=== PATIENT | male | born 1945 | race Caucasian/White ===

== ENCOUNTER 2025-03-11 08:39 | Emergency (ER) | payer MEDICARE, BC ==
[~2025-03-11] VITALS: Ht 167.6 cm; Wt 81.6 kg
[2025-03-11 08:47] VITALS: TEMP 97
--- NOTE | 2025-03-11 09:05 | Physician Documentation ---
History of Present Illness General Chief Complaint: Blood in Urine Stated Complaint: URINARY COMPLICATIONS Time Seen by MD: 09:05 OK to notify your PCP?: No Source: patient, family, RN notes reviewed Mode of Arrival: POV Exam Limitations: no limitations History of Present Illness Initial Comments 79 year old male, with a history of prostate cancer 12 years ago treated with the radiation, presents to the ED complaining of significant hematuria over the last few days. Patient reports he has had some intermittent hematuria over the last 4-5 years with occasional small blood clots. However over the last few days he has had heavy bleeding and large blood clots in his urine. Last night patient was urinating when suddenly his stream stopped, presumably because of a blood clot. He has since resumed to be in able to urinate, but is concerned that this may keep recurring. He denies any fever, abdominal pain, back pain, or nausea/vomiting. He has been trying to get into a urologist for the last few years for further workup into the hematuria, without success. Medication Reconciliation Allergies: Coded Allergies: No Known Allergies (Unverified , 03/11/25) Past Medical History Past Medical History: *CANCER* Other Past Medical History: prostate cancer Past Surgical History: noncontributory Drug Use: none Lives In: Home Review of Systems All Other Systems at this time: Reviewed and Negative ROS Hematuria as well as other positive symptoms noted in the HPI. Otherwise all o ther systems are reviewed and negative. Physical Exam Physical Exam Vital Signs: RN Vital Signs have been reviewed: Yes, Temperature: 97.0, Heart Rate: 67, Respiratory Rate: 18, BP: 139/66, Pulse Oximetry: 99, Weight: 81.600 Pulse Oximetry Reflects: adequate oxygenation Physical Exam VITALS: Reviewed and as above. GENERAL: Alert, no apparent distress. HEENT: Normocephalic, atraumatic, PERRL, EOMI, dry mucosa RESPIRATORY: Lungs clear, normal breath sounds, no respiratory distress. CHEST: No accessory muscle use, no retractions CV: Regular rate, rhythm, no edema, no murmur, No: JVD GI: Soft, non-tender, bowels sounds present, no rebound, guarding, or rigidity MUSCULOSKELETAL No deformities, no edema SKIN: Warm and dry, no rash NEURO: Oriented x4, No motor or sensory deficit PSYCH: Normal mood and affect, no agitation Progress Progress Note 1153: Page out to Dr. Keller. 1307: Case discussed with Dr. Keller, urologist, who will arrange outpatient follow up for cystoscopy. Results/Orders Reviewed/noted all lab results: Yes Results/Orders Medications Received in ER Medications (Trade) Dose Ordered Sig/Elizabeth Route PRN Reason Start Time Stop Time Status Last Admin Dose Admin (0.9% sodium chloride (NS) 1000ml IV soln) 1,000 ml ONCE ONCE IVB 03/11/25 10:00 03/11/25 10:03 DC 03/11/25 10:28 1,000 ML Ceftriaxone Sodium 50 ml @ 100 mls/hr ONCE ONCE IV 03/11/25 10:00 03/11/25 10:29 DC 03/11/25 10:28 100 MLS/HR Vital Signs 03/11/25 03/11/25 03/11/25 03/11/25 08:47 09:21 09:22 10:32 Temp 97.0 Pulse 67 64 62 Resp 18 18 10 13 B/P (MAP) 139/66 142/69 (93) 125/75 (92) Pulse Ox 99 97 98 O2 Flow Rate 0 0 03/11/25 03/11/25 11:00 12:25 Pulse 56 59 Resp 11 B/P (MAP) 137/57 (83) 141/73 (95) Pulse Ox 99 97 O2 Flow Rate 0 0 Laboratory Tests Test 03/11/25 08:58 03/11/25 09:15 Urine Specimen Description Cln catch midstream Urine Color Brown Urine Clarity Turbid Urine pH 6.5 Urine Specific [place] >=1.030 Urine Protein 100 H Urine Glucose (UA) Negative Urine Ketones Trace H Urine Occult Blood Moderate H Urine Nitrite Negative Urine Bilirubin Small Urine Urobilinogen 1.0 Urine Leukocyte Esterase Trace H Urine RBC Tntc Urine WBC 10-20 H Urine Squamous Epithelial Cells Few Urine Amorphous Phosphates 1+ Urine Bacteria 3+ Urine Fine Granular Casts 3-5 Urine Coarse Granular Casts 0-3 Urine Culture Indicated Indicated Volume Urine Centrifuged 10 ml Urine Comment White Blood Count 5.4 Red Blood Count 4.72 Hemoglobin 13.9 Hematocrit 41.5 Mean Corpuscular Volume 88.1 Mean Corpuscular Hemoglobin 29.5 Mean Corpuscular Hemoglobin Concent 33.5 Red Cell Distribution Width 14.2 Platelet Count 164 Mean Platelet Volume 8.0 Neutrophils (%) (Auto) 68.6 Lymphocytes (%) (Auto) 19.5 L Monocytes (%) (Auto) 6.2 Eosinophils (%) (Auto) 5.2 Basophils (%) (Auto) 0.5 Neutrophils # (Auto) 3.7 Lymphocytes # (Auto) 1.1 Monocytes # (Auto) 0.3 Eosinophils # (Auto) 0.3 Basophils # (Auto) 0.0 CBC Comment Prothrombin Time 10.8 INR International Normalized Ratio 1.1 Activated Partial Thromboplast Time 27 Coagulation Comments Sodium Level 142 Potassium Level 4.1 Chloride Level 106 Carbon Dioxide Level 31.5 Anion Gap 5 L Blood Urea Nitrogen 20 H Creatinine 1.42 H Estimated GFR/1.73 m2 48 BUN/Creatinine Ratio 14.1 Glucose Level 105 H Calcium Level 9.0 Total Bilirubin 1.0 Aspartate Amino Transf (AST/SGOT) 16 Alanine Aminotransferase (ALT/SGPT) 19 Alkaline Phosphatase 83 Total Protein 6.8 Albumin 3.7 Globulin 3.1 Albumin/Globulin Ratio 1.2 Chemistry Comments Microbiology Date/Time Source Procedure Growth Status 03/11/25 09:19 Urine Clean Catch Midstream Urine Culture - Preliminary Culture received. Resulted EKG/XRAY/CT/US/VASC/MRI CT : Interpreted By: radiologist CT: abdomen/pelvis With Contrast?: No Impression EXAM: CT CT ABDOMEN PELVIS W/ IV CONTRAST HISTORY: hematuria COMPARISON: None TECHNIQUE: Helical CT images of the abdomen and pelvis were performed with 100 mL omnipaque 300 IV contrast. Sagittal and coronal reformatted images were obtained. This CT exam was performed using 1 or more of the following dose reduction techniques: Automated exposure control, adjustment of the mA and/or kv according to patient size, or the use of iterative reconstruction techniques. Radiation Dose Information: CT Dose: CTDI volume is 17.84 mGy. Dose-length product is 918.65 mGy*cm FINDINGS: CT abdomen: The lung bases are clear. The heart is not enlarged. There are multiple simple cysts in the liver The spleen, gallbladder, pancreas, kidneys, and adrenal glands are unremarkable. No abdominal aortic aneurysm or dissection. CT pelvis: No abnormal bowel dilatation, free air, or free fluid. There is fecal retention throughout the colon. There are sigmoid colon diverticula without d efinite CT evidence of acute diverticulitis. There are biopsy markers in the prostate. There is heterogeneously enhancing infiltrative mass of the left- anterior urinary bladder wall (images 86-93, series 2). There is a small fatty left inguinal indirect hernia. The appendix is not dilated. 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 There is advanced lumbar de generative disc disease and facet arthropathy. There is slight retrolisthesis L2 on L3 and L3 on L4 and L5 on S1; grade 1 anterolisthesis L4 on L5 measuring 4 mm AP, without evidence of spondylolysis. There is a lumbosacral transitional vertebrae. There is multilevel significant neural foraminal stenosis in the lumbar spine bilaterally. There is at least moderate spinal canal stenosis at L2-L3 and L4-L5. IMPRESSION: 1. Infiltrative mass of the left-anterior urinary bladder wall is highly suspicious for primary urinary bladder malignancy. Recommend urology consultation if not already obtained. 2. Fecal retention in the colon suggestive of constipation. 3. Sigmoid colon diverticulosis without evidence of acute diverticulitis. 4. Postoperative changes of prostate biopsy. 5. Advanced lumbar degenerative disc disease and facet arthropathy with multilevel significant neural foraminal stenosis bilaterally and at least moderate spinal canal stenosis at L2-L3 and L4-L5. Recommend follow-up noncontrast MRI of the lumbar spine for better characterization, especially if the patient complains of lower extremity radicular symptoms. 6. No evidence of bowel obstruction, acute appendicitis, or other acute process in the abdomen or pelvis. Reviewed by myself Medical Decision Making Additional info obtained from: old records (no prior visits) Departure Time of Disposition: 13:10 Disposition: 01 HOME / SELF CARE / HOMELESS Impression: Primary Impression: UTI (urinary tract infection) Qualified Codes: N39.0 - Urinary tract infection, site not specified; R31.9 - Hematuria, unspecified Additional Impressions: Hematuria Qualified Codes: R31.9 - Hematuria, unspecified Bladder mass Condition: Stable Discharge Instructions: Hematuria, Adult, Urinary Tract Infection, Adult Additional Instructions: Take full course of antibiotics as prescribed. Follow up with Dr. Keller's office for cystoscopy. Return to the ER for inability to urinate, fever, or other concerns. Referrals: JOHN KELLER MD Education Educated: Patient Educated regarding: diagnosis, treatment, need for follow up Signature Scribe Signature: Scribed for Ohlfs,Meche Albert MD by Cher Henry . 03/11/25 09:19 OHLFS,MECHE Albert MD Mar 11, 2025 09:05 CHER BALL Mar 11, 2025 09:24
[2025-03-11 09:07] LABS: LEUKOCYTE ESTERASE ,URINE TRACE (Neg); OCCULT BLOOD,URINE MODERATE (Neg)
[2025-03-11 09:13] LABS: NITRITES, URINE NEGATIVE (Neg); UA COLLECTION TYPE CLN CATCH MIDSTREAM
[2025-03-11 09:17] LABS: SQUAMOUS EPITHELIAL CELL,UR FEW /LPF (FEW)
[2025-03-11 09:18] LABS: AMORPHOUS PHOSPHATES 1+; COARSE GRANULAR CAST 0-3 /LPF (NEGATIVE)
[2025-03-11 09:24] LABS: MEAN PLATELET VOLUME 8.0 FL (7.4-10.4); RED CELL DISTRIBUTION WIDTH 14.2 % (11.5-14.5)
[2025-03-11 09:39] LABS: APTT 27 SECONDS (22-32); INR 1.1 INR
[2025-03-11 09:41] LABS: CREATININE 1.42 MG/DL (0.60-1.10); TOTAL CARBON DIOXIDE 31.5 MMOL/L (24-32); eCRCL 37 ML/MIN; eGFR 48 ML/MIN
[2025-03-11] MEDS ORDERED: iohexol 300mg/ml 100ml inj. ONE (10:25)
[2025-03-11] MEDS: CefTRIAXone/D5W-Rocephin 1gm 50 ML IV ONE (10:28)
[2025-03-11] MEDS: normal saline 1000ML IV soln IVB ONE (10:28)
--- NOTE | 2025-03-11 11:06 | RADIOLOGY REPORT ---
EXAM: CT CT ABDOMEN PELVIS W/ IV CONTRAST HISTORY: hematuria COMPARISON: None TECHNIQUE: Helical CT images of the abdomen and pelvis were performed with 100 mL omnipaque 300 IV c ontrast. Sagittal and coronal reformatted images were obtained. This CT exam was performed using 1 or more of the following dose reduction techniques: Automated exposure control, adjustment of the mA an d/or kv according to patient size, or the use of iterative reconstruction techniques. Radiation Dose Information: CT Dose: CTDI volume is 17.84 mGy. Dose-length product is 918.65 mGy*cm FINDINGS: CT abdomen: The lung bases are clear. The heart is not enlarged. There are multiple simple cysts in t he liver The spleen, gallbladder, pancreas, kidneys, and adrenal glands are unremarkable. No abdomina l aortic aneurysm or dissection. CT pelvis: No abnormal bowel dilatation, free air, or free fluid. There is fecal retention throughout the colon. There are sigmoid colon diverticula without definite CT evidence of acute diverticulitis. There are biopsy markers in the prostate. There is heterogeneously enhancing infiltrative mass of the left-anterior urinary bladder wall (images 86-93, series 2). There is a small fatty left inguina l indirect hernia. The appendix is not dilated. 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 There is advanced lumbar degenerative disc disease and facet arthropathy. There is slight retrolisthesis L2 on L3 and L3 on L4 and L5 on S1; grade 1 anterolisthesis L4 on L5 measuring 4 mm AP , without evidence of spondylolysis. There is a lumbosacral transitional vertebrae. There is multile don significant neural foraminal stenosis in the lumbar spine bilaterally. There is at least moderate spinal canal stenosis at L2-L3 and L4-L5. IMPRESSION: 1. Infiltrative mass of the left-anterior urinary bladder wall is highly suspicious for primary urina ry bladder malignancy. Recommend urology consultation if not already obtained. 2. Fecal retention in the colon suggestive of constipation. 3. Sigmoid colon diverticulosis without evidence of acute diverticulitis. 4. Postoperative changes of prostate biopsy. 5. Advanced lumbar degenerative disc disease and facet arthropathy with multilevel significant neural foraminal stenosis bilaterally and at least moderate spinal canal stenosis at L2-L3 and L4-L5. Recom mend follow-up noncontrast MRI of the lumbar spine for better characterization, especially if the pat ient complains of lower extremity radicular symptoms. 6. No evidence of bowel obstruction, acute appendicitis, or other acute process in the abdomen or pel vis.
[2025-03-11 12:25] VITALS: O2SAT 97
[2025-03-11] MEDS ORDERED: CEPH-585 PO (13:13)
[2025-03-11 13:22] VITALS: BP 137/69; PULSE 63; RESP 13
== END 2025-03-11 13:38 | disposition home or self-care (01) ==
LOC: EDSEX 08:40 → ER 08:40
DX: N39.0 Urinary tract infection, site not specified (principal); N32.9 Bladder disorder, unspecified; R31.9 Hematuria, unspecified; Z85.46 Personal history of malignant neoplasm of prostate
CPT/HCPCS: 36415; 74177; 80053; 81001; 85025; 85610; 85730; 87088; 96365; 99285; J0696; J7030; Q9967

== ENCOUNTER 2025-05-06 08:23 | Outpatient (CLI) | payer MEDICARE, BC ==
[~2025-05-06 08:23] MED LIST: CEPH-585 PO
[2025-05-06] MEDS ORDERED: GADOTERATE MEGLUMINE 7.5 MMOL/15 ML VIAL IV ONE (14:24)
--- NOTE | 2025-05-06 15:00 | RADIOLOGY REPORT ---
Exam: MR MRI PELVIS History: MALIGNANT NEOPLASM OF POSTERIOR WALL OF BLADDER Comparison: CT CT ABDOMEN PELVIS W/ IV CONTRAST on DOS: 03/11/25 Technique: Multisequence multiplanar MRI images were obtained of the pelvis. Images were obtained without and with intravenous contrast. Findings: Bladder: Redemonstration of enhancing irregular thickening of the urinary bladder wall (approximately 11 o'clock to 6 o'clock position ). This roughly measures 4.3 x 1.4 x 5.9 cm. Visualized bowel: Colonic diverticulosis. Pelvic organs: Unremarkable Lymphadenopathy: No evidence for pelvic lymphadenopathy. Vasculature: There is normal enhancement of the pelvic vasculature. Ascites: Absent. Musculoskeletal: The bone marrow signal is preserved. Small fat containing left inguinal hernia. IMPRESSION: Grossly unchanged bladder mass, as described above. No definite findings of pelvic adenopathy or metastatic disease in the pelvis. Recommend correlation with cystoscopy. Recommend urology consultation.
== END 2025-05-06 23:59 | disposition home or self-care (01) ==
LOC: MRI 08:23
PROVIDERS: ATTEND Student in an Organized Health Care Education/Training Program
DX: C67.4 Malignant neoplasm of posterior wall of bladder (principal); K57.30 Diverticulosis of large intestine without perforation or abscess without bleeding; K40.90 Unilateral inguinal hernia, without obstruction or gangrene, not specified as recurrent
CPT/HCPCS: 72197; A9575